=== PATIENT | female | born 1950 | race Caucasian/White ===

== ENCOUNTER 2017-05-02 22:09 | Emergency (ER) | payer OTHER ==
[~2017-05-02] VITALS: Ht 162.6 cm; Wt 86.2 kg
[2017-05-02 23:14] LABS: BASOPHIL % 0.6 % (0-2); PLATELET COUNT 277 x10^3mcL (130-400)
[2017-05-02 23:18] LABS: RED CELL DISTRIBUTION WIDTH 14.7 % (11.5-14.5)
[2017-05-02] MEDS ORDERED: VENLAFAXINE HY150 MG (23:29)
[2017-05-02] MEDS ORDERED: SEROQUEL300 MG (23:30)
[2017-05-02] MEDS ORDERED: VITAMIN D50000 I4 (23:30)
[2017-05-02] MEDS ORDERED: LEVOXYL0.125 MG (23:31)
[2017-05-02] MEDS ORDERED: AMITIZA8 MC1 (23:31)
[2017-05-02] MEDS ORDERED: PANTOPRAZOLE SO40 M1 PO (23:32)
[2017-05-02] MEDS ORDERED: LIPI20 PO (23:32)
[2017-05-02 23:45] LABS: CALCIUM 9.2 mg/dL (8.5-10.1); CHLORIDE SERUM 94 mmol/L (98-107); CREATININE SERUM 1.8 mg/dL (0.6-1.0); GFR1 30 mL/min; GLUCOSE SERUM 105 mg/dL (74-106); POTASSIUM SERUM 4.4 mmol/L (3.5-5.1); SODIUM SERUM 132 mmol/L (136-145)
[2017-05-02 23:54] LABS: ALBUMIN 3.6 g/dL (3.4-5.0); ALKALINE PHOSPHATASE 112 U/L (46-116); ALT/SGPT 22 U/L (14-59); AST/SGOT 22 U/L (15-37); BILIRUBIN TOTAL 0.37 mg/dL (0.20-1.00); FREE T4 1.06 ng/dL (0.76-1.46); TOTAL PROTEIN, SERUM 7.5 g/dL (6.4-8.2)
[2017-05-03 01:31] VITALS: BP 130/50
== END 2017-05-03 01:28 | disposition short-term general hospital (02) ==
LOC: ED 22:09
PROVIDERS: Emergency Medicine
DX: S06.5X9A Traumatic subdural hemorrhage with loss of consciousness of unspecified duration, initial encounter (principal); S06.6X9A Traumatic subarachnoid hemorrhage with loss of consciousness of unspecified duration, initial encounter; I10 Essential (primary) hypertension; E11.9 Type 2 diabetes mellitus without complications; Z88.0 Allergy status to penicillin; X58.XXXA Exposure to other specified factors, initial encounter; Y93.89 Activity, other specified; Y99.8 Other external cause status; Y92.89 Other specified places as the place of occurrence of the external cause
CPT/HCPCS: 36415; 83880; 84439; G0480; Q0092

== ENCOUNTER 2017-06-20 17:56 | Emergency (ER) | payer OTHER ==
[~2017-06-20 17:56] MED LIST: AMITIZA8 MC1; LEVOXYL0.125 MG; LIPI20 PO; PANTOPRAZOLE SO40 M1 PO; SEROQUEL300 MG; VENLAFAXINE HY150 MG; VITAMIN D50000 I4
[2017-06-20 18:13] VITALS: BP 128/52
== END 2017-06-20 20:24 | disposition home or self-care (01) ==
LOC: ED 17:56
DX: S80.02XA Contusion of left knee, initial encounter (principal); E03.9 Hypothyroidism, unspecified; I10 Essential (primary) hypertension; F32.9 Major depressive disorder, single episode, unspecified; Z86.73 Personal history of transient ischemic attack (TIA), and cerebral infarction without residual deficits; Z88.0 Allergy status to penicillin; Z88.4 Allergy status to anesthetic agent; W01.0XXA Fall on same level from slipping, tripping and stumbling without subsequent striking against object, initial encounter; Y93.89 Activity, other specified; Y92.89 Other specified places as the place of occurrence of the external cause; Y99.8 Other external cause status

== ENCOUNTER 2019-01-19 04:17 | Inpatient (IN) | payer OTHER ==
[~2019-01-19] VITALS: Ht 162.6 cm; Wt 94.5 kg
[2019-01-19 04:26] VITALS: Ht 162.6 cm; Wt 94.5 kg
--- NOTE | 2019-01-19 04:32 | NUR ---
PT BIBA FROM HOME WITH ALOC, PT WITH HX OF TYPE 1 DM AND SISTER FOUND PT ALOC ON WHEELCHAIR AND SISTER CALLED 911 DUE TO BLOOD SUGAR-27 MG/DL, PER PARAMEDICS UPON ARRIVAL PT'S BLOOD SUGAR WAS 36 MG/DL, DEXTROSE 10% 250ML BOLUS GIVEN, UPON ARRIVAL PT IS AAO X 3 WITH CLEAR SPEECH AND VERY VERBALLY RESPONSIVE, HX OF STROKE WITH RT SIDE WEAKNESS, WC FERNANDEZ AT HOME, BREATHING EVEN AND UNLABORED ON ROOM AIR WITH NO RESP DISTRESS NOTED, PT STATED THAT SHE HAD BREAKFAST, LUNCH AND DINNER BUT STATED THAT SHE MIGHT GAVE HERSELF TOO MUCH INSULIN YESTERDAY, PT'S BLOOD SUGAR UPON ARRIVAL:86 MG/DL, ALL UPDATES GIVEN TO DR SINCLAIR, PER DR SINCLAIR OKAY TO GIVE PT A SANDWICH. WILL CONTINUE TO MONITOR.
--- NOTE | 2019-01-19 05:20 | NUR ---
PT'S SISTER CALLED-RAQUEL GALLARDO [phone], PER PT'S SISTER THAT SHE LIVES WITH PT BUT THEY HAD A LITTLE ARGUMENT YESTERDAY AND PT THREW ALL HER MEDS ON THE TABLE AT HOME, PER PT WAS OKAY TO GIVE UPDATES TO SISTER, SIMPLE UPDATES GIVEN TO SISTER DURING THE PHONE, PER PT'S SISTER PLEASE CALL HER WHEN PT IS READY TO BE DISCHARGE.
--- NOTE | 2019-01-19 05:45 | NUR ---
RECHECK PT'S BLOOD SUGAR-19 MG/DL AND REPEATED THE 2ND TIME IS 22 MG/DL, PT IS AWAKE BUT WITH SOME CONFUSION, DR SINCLAIR MADE AWARE, NEW ORDER RECEIVED FOR DEXTROSE 50% 50 ML IVP X1, MEDS GIVEN.
--- NOTE | 2019-01-19 06:00 | NUR ---
RECHECK PT'S BLOOD SUGAR AFTER DEXTROSE 50% IS 182 MG/DL. DR SINCLAIR MADE AWARE.
--- NOTE | 2019-01-19 06:04 | NUR ---
SPOKE WITH PT'S SISTER REGARDING PT'S HOME MEDS, PER PT'S SISTER THAT SHE HAS TO GATHER ALL PT'S MEDS BOTTLE TOGETHER LATER ON SO SHE WILL CALL BACK TO IN THE MORNING TO [facility]ST UNIT.
--- NOTE | 2019-01-19 06:07 | NUR ---
DR LÓPEZ AT BEDSIDE AND SCOTT PT.
--- NOTE | 2019-01-19 06:36 | NUR ---
PT ASLEEP AND APPEARS COMFORTABLE, BREATHING EVEN AND UNLABORED ON ROOM AIR WITH NO RESP DISTRESS NOTED, WILL CONTINUE TO MONITOR.
--- NOTE | 2019-01-19 06:44 | NUR ---
RECHECK PT'S BLOOD SUGAR- 81 MG/DL.
--- NOTE | 2019-01-19 07:06 | NUR ---
REPORT GIVEN TO NIEVES, ALL QUESTIONS ANSWERED AND CONCERNS ADDRESSED.
[2019-01-19 07:08] LABS: CHOLESTEROL/HDL RATIO 3.3; PHOSPHOROUS 3.7 mg/dL (2.5-4.9)
[2019-01-19 07:16] LABS: T3 TOTAL 0.81 ng/mL
--- NOTE | 2019-01-19 07:20 | NUR ---
RECIEVED REPORT FROM EVER ROBERSON
[2019-01-19 07:22] LABS: FREE T4 0.85 ng/dL (0.76-1.46); FREE THYROXINE INDEX 2.1 ug/dL (1.4-4.5); T4(THYROXINE) 6.1 ug/dL (4.7-13.3)
--- NOTE | 2019-01-19 07:38 | NUR ---
CALLED REPORT TO EVER MCCARTHY
--- NOTE | 2019-01-19 07:48 | NUR ---
PT STILL LETHARGIC AND WILL NOT OPEN EYES TO VERBAL STIMULI; OPENS EYES TO PAINFUL STIMULI; CONNECTED TO FULL WINDSHIELD REPAIR TECHNICIAN; PAGED RESIDENT OF TO COME DOWN.
--- NOTE | 2019-01-19 07:55 | NUR ---
AT BEDSIDE; PT NOW FOLLOWING COMMANDS AND AWAKE AND ANSWERING QUESTIONS. PT STS SHE LIVES ALONE AND HAD STROKE 6 YEARS AGO.
--- NOTE | 2019-01-19 08:15 | NUR ---
RECEIVED PATIENT FROM ER. DROWSY, AROUSABLE. ORIENTED TO PERSON AND PLACE. SPEECH CLEAER. HX OF CVA W/ RT SIDE WEAKNESS. OBESITY. NO RESP DISTRESS ON RA. BS WAS 120 IN ER WITH D 10 100CC/HR. IV SITE TO R HAND INTACT. GENERAL WEAKNESS. CALL LIGHT IN REACH.
--- NOTE | 2019-01-19 10:00 | NUR ---
BS =358. PATIENT DROWSY.
[2019-01-19] MEDS ORDERED: LISINOPRIL2.5 MG PO (10:38)
[2019-01-19] MEDS ORDERED: VITAMIN D50000 I4 PO (10:39)
[2019-01-19] MEDS ORDERED: PROTONIX40 MG PO (10:39)
[2019-01-19] MEDS ORDERED: KLONOPIN1 MG PO (10:41)
[2019-01-19] MEDS ORDERED: AMITIZA8 MC1 PO (10:43)
[2019-01-19] MEDS ORDERED: VENLAFAXINE150 M1 PO (10:45)
[2019-01-19] MEDS ORDERED: LEVOTHYROXIN0.125 M2 PO (10:47)
[2019-01-19] MEDS ORDERED: VENLAFAXINE HY150 MG PO (10:51)
[2019-01-19] MEDS ORDERED: KEPPRA1000 M1 PO (10:52)
[2019-01-19] MEDS ORDERED: LIPI20 PO (10:53)
[2019-01-19] MEDS ORDERED: SEROQUEL300 MG PO (10:56)
[2019-01-19] MEDS ORDERED: GOOD SENSE ASP325 MG (10:58)
[2019-01-19] MEDS ORDERED: MYCOC TOP (10:59)
[2019-01-19] MEDS ORDERED: HUMALOG KW100 UNIT/1 (11:01)
[2019-01-19 11:10] VITALS: BP 109/52
--- NOTE | 2019-01-19 13:00 | NUR ---
DR. GARIBAY SAW PATIENT. PATIENT UNABLE TO VOID VIA BED HDZ, BUT GENERAL WEAKNESS, UNABLE TO WALK THIS TIME. NEW ORDER OF 16 FR BLACKWELL CATH INSERTION GIVEN. 700 CC OF YELLOW URINE COLLECTED. URINE SPECIMEN SENT.
[2019-01-19 13:10] VITALS: BP 119/49
[2019-01-19 14:09] LABS: microscopic required? NO
[2019-01-19 14:14] LABS: UA SPECIFIC GRAVITY 1.015 (1.005-1.035); urine erythrocyte NEGATIVE (NEGATIVE)
[2019-01-19 14:30] LABS: AMPHETAMINE QUAL UR NONE DETECTED (See below)
[2019-01-19 17:02] VITALS: BP 126/43
--- NOTE | 2019-01-19 18:00 | NUR ---
REPORTED TO DR. GARIBAY WITH PATIENT'S BLOOD SUGAR 189 ON D 10 55CC/HR. DR. GARIBAY ORDER D10 75CC/HR AND HOLD INSURINE SLIDING SCALE. PATIENT STILL DROWSY AND AROUSABLE. BLACKWELL 850CC OF URINE COLLECTED. ENDORSED CARE TO [facility] NURSE.
[2019-01-19 18:31] LABS: BASOPHIL % 0.5 % (0-2); CALCIUM 8.7 mg/dL (8.5-10.1); CARBON DIOXIDE 28.5 mmol/L (21-32); CREATININE SERUM 1.4 mg/dL (0.6-1.0); PLATELET COUNT 260 x10^3mcL (130-400); POTASSIUM SERUM 4.5 mmol/L (3.5-5.1)
--- NOTE | 2019-01-19 19:05 | NUR ---
RECEIVED PT LAYING IN BED, NO ACUTE DISTRESS OBSERVED, DENIES PAIN OR DISCOMFORT AT THIS TIME. PT IS AA/OX4, DROWSY BUT AROUSABLE TO VERBAL STIMULI, SPEECH CLEAR AND APPROPRIATE, ABLE TO MAKE NEEDS KNOWN. NSR TO TELE #10, NO CP. PULSES PRESENT AND EQUAL THROUGHOUT, NO EDEMA. BREATHING ON RA, EVEN AND UNLABORED, NO SOB OR DYSPNEA OBSERVED. ABD ROUND AND SOFT WITH ACTIVE BOWEL SOUNDS, DENIES N/V/D. BLACKWELL CATH IN PLACE DRAINING YELLOW URINE TO GRAVITY. MILD GENERALIZED WEAKNESS, UP WITH P.T., ABLE TO TURN AND REPOSITION SELF IN BED, PT STATES SHE USES FWW AT BASELINE. IV TO RH IN PLACE, DRY, PATENT, INTACT, AND INFUSING IVF WELL, NO PAIN, REDNESS OR SWELLING NOTED. COMFORT AND SAFETY MEASURES IN PLACE. FALL PRECAUTIONS IN PLACE. ALL NEEDS ASSESSED AND ATTENDED TO. CALL LIGHT WITHIN. WILL CONTINUE TO MONITOR
[2019-01-19 20:53] VITALS: BP 151/50
--- NOTE | 2019-01-20 01:35 | NUR ---
PT INQUIRING ABOUT EVENING MEDICATION OF SEROQUEL AND LANTUS 30 UNITS. PT ADVISED THAT HOME MEDS BEING HELD AT THIS TIME DUE TO PT'S ALOC AND BLOOD SUGAR OF 19 IN ER PRIOR TO ADMIT. PT VERBALIZED UNDERSTANDING AND AGREED TO CURRENT PLAN OF CARE. ALL QUESTIONS AND CONCERNS ADDRESSED. NO ACUTE DISTRESS OBSERVED AT THIS TIME. CALL LIGHT WITHIN REACH. WILL CONTINUE TO MONITOR
[2019-01-20 05:11] VITALS: BP 138/50
--- NOTE | 2019-01-20 05:39 | NUR ---
NO SIGNIFICANT CHANGES TO REPORT, PT COMPLIED WITH NURSING CARE THROUGHOUT THE SHIFT WITH NO ACUTE EVENTS OVERNIGHT. PT REMAINS AA/OX4, NO LONGER DROWSY OR LETHARGIC. EASILY AROUSABLE TO VERBAL STIMULI. FINGERSTICK BLOOD SUGAR THIS MORNING, 115. PT ADMITS TO POOR APPETITE THE PAST FEW DAYS DUE TO ARGUING WITH SISTER, WHOM SHE LIVES WITH. ENCOURAGED PT TO EAT BREAKFAST THIS MORNING DUE TO IMPORTANCE OF MAINTAINING OPTIMAL BLOOD SUGAR LEVELS. COMFORT AND SAFETY MEASURES MAINTAINED. NO ACUTE DISTRESS OBSERVED AT THIS TIME, PT SITTING UP IN BED USING CELL PHONE. CALL LIGHT WITHIN REACH. WILL CONTINUE TO MONITOR AND ENDORSE CARE TO DAY SHIFT NURSE
--- NOTE | 2019-01-20 07:11 | NUR ---
RECEIVED REPORT FROM FELICE CURTIS. PATIENT NOW SITTING COMFORTABLY AT EDGE OF BED AFTER BEING ASSISTED TO THE RESTROOM. PT HAD ONE FORMED BM WITH NO DISCOMFORT. SALINE LOCK TO RT HAND IS PATENT AND INTACT. NO REDNESS OR PAIN. TELE # [address] PT DENIES CHEST PAIN. PT ON ROOM AIR. NO C/O SOB AND NO DISTRESS NOTED. ALL QUESTIONS AND CONCERNS ADDRESSED.
[2019-01-20 07:44] LABS: CARBON DIOXIDE 26.9 mmol/L (21-32); CREATININE SERUM 1.5 mg/dL (0.6-1.0); POTASSIUM SERUM 4.9 mmol/L (3.5-5.1)
[2019-01-20 08:28] LABS: BASOPHIL % 0.4 % (0-2); PLATELET COUNT 266 x10^3mcL (130-400)
[2019-01-20 09:13] VITALS: BP 155/68
--- NOTE | 2019-01-20 10:22 | NUR ---
ROUNDS: DR COREAS, RESIDENTS, PRIMARY RN AND WEIGH MACHINE OPERATOR AT BEDSIDE. DISCUSSED DIABETES CARE, MEDICATION MANAGEMENT WITH ADJUSTMENT IN MEDICATIONS, SHOULDER PAIN WITH ADDITION OF PAIN MEDICATION. UPON DISCHARGE IT IS RECOMMENDED THAT PATIENT STOP LONG ACTING INSULIN. PT STATED THAT ANY ADJUSTMENTS MUST BE MADE BY HER PRIMARY DOCTOR AND SHE WILL FOLLOW UP WITH HIM. ALL QUESTIONS AND CONCERNS ADDRESSED.
--- NOTE | 2019-01-20 12:05 | NUR ---
IN TO ADMINISTER 3 UNITS REGULAR INSULIN FOR BLOOD GLUCOSE 193. DISCUSSED PATIENT'S SLIDING SCALE AT HOME. HER DISORIENTATION IS BECOMING APARRENT SHE STATED THAT FOR A GLUCOSE OF THIS LEVEL AT HOME, SHE WOULD ADMINISTER 256 UNITS. SHE ALSO STATED THAT A GLUCOSE OF 40 IS NORMAL FOR HER AND THAT SHE CHECKS HER BLOOD GLUCOSE 6 TIMES A DAY BUT DOESN'T RECALL A RANGE THAT SHE RUNS.
[2019-01-20 12:22] VITALS: BP 126/47
--- NOTE | 2019-01-20 13:18 | NUR ---
PHYSICAL THERAPY IN TO SEE AND WORK WITH PATIENT.
--- NOTE | 2019-01-20 15:23 | NUR ---
PHYSICAL THERAPY DAILY NOTES CO-SIGN All documentation done by the Biological Lab Technician for 01/20/19 has been reviewed. I agree with the documentation. Reviewed/Co-Signed by: Pranav Dave PT Documentation Done by:MEGAN PRATHER BLANKBOOK STITCHING MACHINE OPERATOR POC REVIEWED W/ BLANKBOOK STITCHING MACHINE OPERATOR
[2019-01-20 17:26] VITALS: BP 138/53
--- NOTE | 2019-01-20 18:43 | NUR ---
NO SIGNIFICANT CHANGES THROUGHOUT THE DAY. PATIENT IS RESTING COMFORTABLY IN BED WITH ALL NEEDS MET. TELE # [address]. PT DENIES CHEST PAIN. SALINE LOCK TO RFA IS PATENT AND INTACT WITH NO REDNESS OR PAIN. PT ON ROOM AIR. NO C/O SOB AND NO DISTRESS NOTED. WILL ENDORSE ALL CARE TO ONCOMING NURSE.
--- NOTE | 2019-01-20 19:00 | NUR ---
RECEIVED PT FROM DAY SHIFT RN. PT IS ALERT AND ORIENTED TO PERSON PLACE TIME AND SITUATION AND IS ABLE TO FOLLOW COMMANDS. PT CURRENTLY RESTING IN BED AND WATCHING TV AT THIS TIME. NO ALTERED LOC NOTED. TELE #[address] PT DENIES CHEST PAIN AND SHORTNESS OF BREATH. THERE ARE NO USE OF ACCESSORY MUSCLES OR LABORED BREATHING ON ASSESSMENT. BLACKWELL CATHETER IN PLACE DRAINING YELLOW URINE. PT TOLERATING WELL. WILL MONITOR PT'S BLOOD SUGAR. PT DENIES ANY PAIN AT THIS TIME. THERE IS A RFA IV THAT IS CLEAN DRY AND INTACT AT THIS TIME. SAFETY MEASURES ARE IN PLACE. BED IS IN THE LOWEST POSITION. CALL LIGHT IS WITHIN REACH. WILL CONTINUE TO MONITOR PT.
--- NOTE | 2019-01-20 20:30 | NUR ---
PT B ADMINISTERED 3 U OF REGULAR INSULIN. PT TOLERATED WELL. GAVE PT ORANGE JUICE TO KEEP ON HAND.
[2019-01-20 21:47] VITALS: BP 137/53
--- NOTE | 2019-01-20 22:46 | NUR ---
PT RESTING IN BED WITH EYES CLOSED. NO DISTRESS NOTED. NO USE OF ACCESSORY MUSCLES OR LABORED BREATHING. WILL CONTINUE TO MONITOR.
[2019-01-21 05:32] VITALS: BP 130/51
[2019-01-21 06:44] LABS: CALCIUM 8.2 mg/dL (8.5-10.1); CARBON DIOXIDE 26.8 mmol/L (21-32); CREATININE SERUM 1.4 mg/dL (0.6-1.0); PHOSPHOROUS 3.5 mg/dL (2.5-4.9); POTASSIUM SERUM 4.1 mmol/L (3.5-5.1)
[2019-01-21 06:58] LABS: BASOPHIL % 0.4 % (0-2); PLATELET COUNT 254 x10^3mcL (130-400); RED CELL DISTRIBUTION WIDTH 13.8 % (11.5-14.5)
--- NOTE | 2019-01-21 08:00 | NUR ---
SHIFT ASSESSMENT DONE. PATIENT A/A/OX2 (P&P), CLEAR SPEECH. ABLE TO MADE NEEDS KNOWN. TELE#10; SR; HR = 74; NO RESP DISTRESS ON RA. ABD ROUND/SOFT. HAD BM X3 YESTERDAY. TOLERATED CCHO DIET BY SELF FEEDING. NO N/V. BLACKWELL PATENT W/ COURTNEY URINE OUTPUT. IVHL'D TO LW. SITE CLEAN. GENERAL WEAKNESS. ABLE TO WALK WITH ASSISTANCE. C/O LT SHOULDER MILD PAIN DUE TO PNEUMOCOCCAL VACCINE INJECTION ON 01/19. WARM WOULD BE GIVEN. CALL LIGHT IN REACH.
[2019-01-21 08:54] VITALS: BP 136/46
--- NOTE | 2019-01-21 11:45 | NUR ---
C/O ANXIETY. PATIENT HAD HALUCINATION. SHE SAID, " TWO POLICE OFFICE AT DOOR AND WOULD GIVE HER SEROQUEL". SHE CONFUSED AT TIMES. KLONOIN [address] MELO PAGED. NO CALL BACK. DR. BEAL NOTIFIED.
[2019-01-21 12:31] VITALS: BP 140/53
[2019-01-21 17:40] VITALS: BP 154/54
--- NOTE | 2019-01-21 17:54 | NUR ---
PATIENT ACCEPTED EFFEXOR 150MG AND SEROQUEL 150MG PO NOW.
--- NOTE | 2019-01-21 19:00 | NUR ---
TELE D/C'D. BLACKWELL 800 CC OF COURTNEY COLOR URINE COLLECTED. NO BM THIS SHIFT. DENIED PAIN. ENDIRSED CARE TO NOC NURSE.
--- NOTE | 2019-01-21 19:05 | NUR ---
REPORT RECEIVED FROM DAY SHIFT RN. PATIENT WAS SEEN AND IS RESTING COMFORTABLY IN BED. NO DISTRESS NOTED. A/OX3. CONFUSED AT TIMES. MED SURG. BREATHING EVEN AND UNLABORED ON ROOM AIR. NO SOB OR RESP DISTRESS NOTED. BLACKWELL CATH IN PLACE DRAINING COURTNEY URINE BY GRAVITY. NO KINKS OR CLOTS NOTED. IV TO THE LEFT WRIST. SALINE LOCK. PATENT AND INTACT. NO REDNESS OR SWELLING NOTED. COMFORT AND SAFETY MEASURES IN PLACE. BED IS LOCKED AND IN THE LOWEST POSITION. SIDE RAILS UP X2. CALL LIGHT IS WITHIN REACH. WILL CONTINUE TO CLOSELY MONITOR.
[2019-01-21 19:53] VITALS: BP 142/51
--- NOTE | 2019-01-22 02:35 | NUR ---
PATIENT IS RESTING IN BED WITH EYES CLOSED. NO DISTRESS NOTED. BREATHING EVEN AND UNLABORED ON ROOM AIR. NO S/S OF PAIN NOTED. CALL LIGHT IS WITHIN REACH. WILL CONTINUE TO MONITOR.
[2019-01-22 06:28] VITALS: BP 128/54
--- NOTE | 2019-01-22 06:31 | NUR ---
RESTED IN LONG THROUGHOUT THE NIGHT. NO ACUTE CHANGES NOTED. NO DISTRESS NOTED. BREATHING EVEN ON ROOM AIR. BLACKWELL CATH IN PLACE DRAINING COURTNEY URINE BY GRAVITY. NO C/O PAIN. DENIES CHEST PAIN. ALL NEEDS AND CONCERNS ADDRESSED. SEIZURE PRECAUTIONS IN PLACE. SAFETY MEASURES IN PLACE. CALL LIGHT IS WITHIN REACH. WILL ENDORSE CARE TO DAY SHIFT RN.
--- NOTE | 2019-01-22 07:25 | NUR ---
PT IS AAOX3-4, CONFUSED. PT HAS PRESSED SPEECH AND APPEARS ANXIOUS. RESP EVEN AND UNLABORED. LUNG SOUNDS CTA. ON R/A. NO COUGH OR SOB NOTED. NORMAL S1S2 NOTED. DENIES C/P OR PRESSURE. ABDOMEN SOFT, ROUND, NONTENDER, NONDISTENDED. BOWEL SOUNDS ACTIVE X4 QUADS. DENIES N/V/D. BLACKWELL CATH IN PLACE, PATENT, DRAINING CLEAR COURTNEY URINE TO GRAVITY. SKIN CDI. PERIPHERAL PULSES PALPABLE. NO EDEMA NOTED. IV CATH N/S LOCKED TO LEFT WRIST, SITE WNL, COVERED WITH CDI DRESSING. NO S/S OF INFECTION OR INFILTRATION NOTED. PT DENIES PAIN AND DISCOMFORT AT THIS TIME. FALL PROTOCOL FOLLOWED. BED IN LOWEST POSITION. SHIP CLEANER IN ROOM ASSISTING WITHI ADLS. CALL LIGHT WITHIN REACH.
[2019-01-22 08:51] VITALS: BP 158/46
--- NOTE | 2019-01-22 09:59 | NUR ---
BLACKWELL CATH REMOVED FROM PT, 10ML REMOVED FROM INTACT BALLOON. PERICARE GIVEN. 200ML CLEAR COURTNEY URINE REMOVED FROM BLACKWELL BAG. PT TOLERATED PROCEDURE WELL. PT DENIES PAIN AND DISCOMFORT AT THIS TIME. DUE MEDS GIVEN AND TOLERATED WELL. B/P 158/46, HR 80. CALL LIGHT WITHIN REACH. BILATERAL UPPER HALF SIDE RAILS UP X2. FALL PROTOCOL IN PLACE. BED IN LOWEST POSITION.
--- NOTE | 2019-01-22 10:16 | NUR ---
PT IS UP WALKING WITH P/T AT THIS TIME.
--- NOTE | 2019-01-22 12:55 | NUR ---
SPOKE DR. LEVY AND INFORMED HIM THAT WAS THE PATIENT'S SON [place] IS CONCERNED HIS MOTHER MAY NOT BE SAFE TO DISCHARGE TO HOME. DR. LEVY WAS GIVEN THE SON'S NUMBER ([phone]) AND STATED HE WILL CALL THE SON TO DISCUSS THE PT'S DISCHARGE WITH HIM.
--- NOTE | 2019-01-22 13:30 | NUR ---
PT IS SLEEPING BUT EASILY AROUSABLE. RESP EVEN AND UNLABORED. NO DISTRESS NOTED. CALL LIGHT WITHIN REACH. BED IN LOW POSITION. FALL PROTOCOL FOLLOWED. GARLAND MACHINE OPERATOR IN ROOM ASSISTING WITH ADLS.
[2019-01-22 16:31] VITALS: BP 153/46
--- NOTE | 2019-01-22 16:54 | NUR ---
BLOOD SUGAR 191, NO INSULIN COVERAGED INDICATED. PT IS CALM AND COOPERATIVE AT THIS TIME. DENIES PAIN, DENIES FEELING COOL, CLAMMY, WEAK. PT IS SITTING UP VISTING WITH ROOM MATE. MEMBERSHIP ADMINISTRATOR IN ROOM ASSISTING WITH ADLS. CALL LIGHT WITHIN REACH. BED IN LOW POSITION.
--- NOTE | 2019-01-22 18:13 | NUR ---
PT IS AAOX3-4 CONFUSED AT TIMES WITH PRESSED SPEECH. CALM AND COOPERATIVE AT THIS TIME. RESP EVEN AND UNLABORED. NO DISTRESS NOTED. DENIES PAIN AND DISCOMFORT. IV CATH N/S LOCKED TO LW. SITE WNL, NO S/S OF INFECTION OR INFILTRATION NOTED. CALL [facility]IGHT [facility]. FALL PROTOCOL FOLLOWED. FULL STACK PHP DEVELOPER IN ROOM ON ONE TO ONE SUPERVISION.
[2019-01-22 18:41] VITALS: BP 153/46
--- NOTE | 2019-01-22 19:30 | NUR ---
RECEIVED PT FROM CECILLE-RN, PT SEEN, WAS IN THE RESTROOM, AMBULATED BACK TO BED WITH UNSETAD GAIT BUT BACK TO BED WITHOUT ANY INCIDENT, PT SEEN, ALERT AND ORIENTED X 3 BUT WITH PERIODS OF CONFUSION AND FORGETFUL, DENIES HEADACHE OR DIZZINESS, SZ PRECAUTION IN PLACE, BREATHING EVEN AND UNLABORED, LUNG SOUNDS CLEAR BUT DIMINISHED AT BASE, ON ROOM AIR WITH NO RESP DISTRESS OR SOB NOTED, MEDSURG PT, DENIES CHEST PAIN, PT ACCIDENTALLY PULLED OUT THE IV INSIDE THE RESTROOM, RE-INSERTED TO RW WITH 22G, PULSES PALPABLE, EDEMA NOTED TO BLE, GENERALIZED WEAKNESS, ABD ROUND WITH ACTIVE BS, NO BM AT THIS TIME, DENIES ABD PAIN, VOIDING FREELY, ECCHYMOSIS TO BUE, SIDE RAILS UP, FALL PRECAUTION IN PLACE, NO DISTRESS NOTED, WILL KEEP TO MONITOR.
[2019-01-22 22:00] VITALS: BP 134/49
[2019-01-23 05:58] VITALS: BP 122/50
--- NOTE | 2019-01-23 06:13 | NUR ---
PT ASLEEP BUT EASILY AROUSABLE, SLEPT MOST OF NIGHT, MORNING BLOOD SUGAR-147 MG/DL WITH NO RISS, SL TO RW, CONDITION NO CHANGE, NO DISTRESS NOTED, WILL KEEP TO MONITOR.
[2019-01-23 06:23] LABS: BASOPHIL % 0.7 % (0-2); PLATELET COUNT 259 x10^3mcL (130-400); RED CELL DISTRIBUTION WIDTH 13.8 % (11.5-14.5)
[2019-01-23 06:43] LABS: CALCIUM 8.2 mg/dL (8.5-10.1); CARBON DIOXIDE 29.8 mmol/L (21-32); CREATININE SERUM 1.4 mg/dL (0.6-1.0); POTASSIUM SERUM 4.4 mmol/L (3.5-5.1)
--- NOTE | 2019-01-23 07:07 | NUR ---
BEDSIDE HANDOFF REPORT GIVEN TO TITI-RN, ALL QUESTIONS ANSWERED AND CONCERNS ADDRESSED.
--- NOTE | 2019-01-23 07:25 | NUR ---
RECEIVED PT FROM NASREEN RN. PT AA/OXCb SITTING UP IN BED. NO S/S OF ACUTE DISTRESS. NO SOB ON ROOM AIR. NO COMPLAINT OF PAIN. NO N/V. NO DORANTES. NO DIZZINESS. IV WNL TO RW, PATENT AND FLUSHES WELL. CALM/COOPERATIVE. BED IN LOW POSITION. CALL LIGHT WITHIN REACH. NO CHEST PAIN. INSTRUCTED TO USE CALL LIGHT TO CALL FOR ASSISTANCE PRN. VERBALIZED UNDERSTANDING. WILL CONTINUE TO MONITOR.
[2019-01-23 09:22] VITALS: BP 117/39
[2019-01-23 11:55] VITALS: BP 117/39
--- NOTE | 2019-01-23 12:58 | NUR ---
PT BEING DISCHARGED TO HOME, ACCOMPANIED BY NIECE. PT AWAKE, ALERT, ORIENTED X3. FORGETFUL AT TIMES. NO S/S OF ACUTE DISTRESS. NO COMPLAINT OF PAIN. NO SOB ON ROOM AIR. NO N/V. NO CHILLS. NO DORANTES. NO DIZZINESS. PT TOLERATING CCHO DIET WELL. VS STABLE. NO SOB ON ROOM AIR. DISCHARGE EDUCATION PROVIDED TO PATIENT AND NIECE. INSTRUCTED TO FOLLOW UP WITH PCP AT [facility]ING [facility]PT. VERBALIZED UNDERSTANDING. PT REMOVED IV SELF TO RW, CATHETER IN TACT. PRESSURE APPLIED. SITE WNL. BELONGINGS WITH PATIENT. NIECE VERIFIED THAT SISTER TOOK PT HOME MEDICATIONS HOME. TAKEN BY WHEELCHAIR TO DISCHARGE LOBBY BY NIMESH KRUSE.
--- NOTE | 2019-01-23 13:03 | NUR ---
PT RECEIVING IVPB AT THIS TIME. AA/OX4. LAYING IN BED. TOLERATING REGULAR DIET WELL. DENIES N/V AT THIS TIME. NO ABD. PAIN. NO S/S OF ACUTE DISTRESS. NO CHEST PAIN. NO FEVER. NO CHILLS. DRESSINGS TO ABD. CDI. IV SITE WNL TO RW. PATENT. CALM/COOPERATIVE. BED IN LOW POSITION. CALL LIGHT WITHIN REACH. WILL CONTINUE TO MONITOR.
--- NOTE | 2019-01-24 07:03 | NUR ---
PHYSICAL THERAPY DAILY NOTES CO-SIGN All documentation done by the Drug Room Operator for 01/23/19 has been reviewed. I agree with the documentation. Reviewed/Co-Signed by: Aimee Abreu PT Documentation Done by: MEGAN PRATHER PTA
== END 2019-01-23 13:00 | disposition home or self-care (01) | DRG 637 ==
LOC: ED 04:17 → MU 05:54 → DU 05:54 → MU 08:17 → DU 10:19 → MU 01-21 17:55
PROVIDERS: ADMIT Internal Medicine
DX: E11.649 Type 2 diabetes mellitus with hypoglycemia without coma (principal); G93.41 Metabolic encephalopathy; I10 Essential (primary) hypertension; F31.9 Bipolar disorder, unspecified; F41.0 Panic disorder [episodic paroxysmal anxiety]; T38.3X5A Adverse effect of insulin and oral hypoglycemic [antidiabetic] drugs, initial encounter; Y92.018 Other place in single-family (private) house as the place of occurrence of the external cause; Z79.4 Long term (current) use of insulin; Z68.32 Body mass index [BMI] 32.0-32.9, adult; Z86.73 Personal history of transient ischemic attack (TIA), and cerebral infarction without residual deficits
CPT/HCPCS: 82962; 84439; 90732; 97110-GP; 97116-GP; 97530-GP; G0378; J3490; Q0092